=== PATIENT | male | born 1995 | race Caucasian/White ===

== ENCOUNTER 2017-09-04 10:23 | Outpatient (CLI) | payer OTHER ==
[2017-09-04 11:22] LABS: Hemoglobin 15.5 g/dL (14.0-18.0); Mean Corpuscular HGB CONC 32.9 g/dL (32.0-36.0); Mean Corpuscular Hemoglobin 30.3 pg (27.0-31.0); Mean Corpuscular Volume 92.1 fL (78.0-98.0); Mean Platelet Volume 7.8 fL (7.4-10.4); Platelet Count 179 thou/uL (130-400); RBC Distribution Width 11.6 % (11.5-14.5); Red Blood Cell (RBC) Count 5.11 mill/uL (4.70-6.10); White Blood Cell (WBC) Count 7.8 thou/uL (4.8-10.8)
[2017-09-04 11:26] LABS: PTT 31.5 SEC (22.9-36.1)
[2017-09-04 11:40] LABS: Anion Gap 14 mmol/L (10-20); BUN (Urea Nitrogen) 15 mg/dL (8.9-20.6); Calc. Creatinine Clearance 0 mL/min (70-130); Calcium 9.9 mg/dL (7.8-10.44); Carbon Dioxide 26 mmol/L (22-29); Chloride 104 mmol/L (98-107); Estimated GFR-MDRD Greater than 90; Glucose 86 mg/dL (70-105); INR-International Normal Ratio 1.1; Potassium 4.5 mmol/L (3.5-5.1); Prothrombin Time 14.1 SEC (12.0-14.7); Sodium 139 mmol/L (136-145)
== END 2017-09-04 10:24 | disposition home or self-care (01) ==
LOC: LABBT 10:23
PROVIDERS: ATTEND Dentist Oral and Maxillofacial Surgery
DX: Z01.818 Encounter for other preprocedural examination (principal); W55.81XA Bitten by other mammals, initial encounter
CPT/HCPCS: 80048; 85027; 85610; 85730; 93005; 93010

== ENCOUNTER 2017-09-16 05:41 | Observation (INO) | payer OTHER ==
[2017-09-16] MEDS ORDERED: Chlorhexidine Gluconate 15 ML UDCUP SSP ONE (06:32)
[2017-09-16] MEDS ORDERED: Lidocaine 1% w/Epinephrine 1:100K 30 ML VIAL ONE (06:32)
[2017-09-16] MEDS ORDERED: Oxymetazoline HCl 0.05% ( 15 ML ) ONE (06:41)
[2017-09-16] MEDS ORDERED: Clindamycin/D5W 900 mg/50 ml Premix Bag ONE (06:41)
[2017-09-16] MEDS ORDERED: Dexamethasone 4 mg/ml Vial ONE (06:41)
[2017-09-16] MEDS ORDERED: Fentanyl 250 MCG/5 ML VIAL ONE (06:47)
[2017-09-16] MEDS ORDERED: Midazolam HCl 2 mg/2 ml Vial ONE (06:51)
[2017-09-16] MEDS ORDERED: PROPOFOL 20 ML ONE (07:44)
[2017-09-16] MEDS ORDERED: Meperidine HCl/PF 25 MG/ML VIAL SLOW IVP PRN (11:10)
[2017-09-16] MEDS ORDERED: Promethazine HCl 25 MG/ML VIAL IM PRN (11:10)
[2017-09-16] MEDS ORDERED: Promethazine HCl 25 MG/ML VIAL SLOW IVP PRN (11:10)
[2017-09-16] MEDS ORDERED: Ondansetron HCl/PF 4 MG/2 ML Vial IVP PRN (11:10)
[2017-09-16] MEDS ORDERED: Promethazine HCl 25 MG/ML VIAL ONE (11:51)
[2017-09-16] MEDS ORDERED: Fentanyl 100 MCG/2 ML VIAL ONE ×2 (11:51→12:20)
[2017-09-16] MEDS ORDERED: PHENYLEPHRINE-NS 100 MCG/ML 10 ML SYRINGE ONE (12:50)
[2017-09-16] MEDS ORDERED: Lidocaine 1% PF 5 ML VIAL ONE (12:50)
[2017-09-16] MEDS ORDERED: Dexamethasone 20 MG/5 ML VIAL ONE (12:50)
[2017-09-16] MEDS ORDERED: Ondansetron HCl/PF 4 MG/2 ML Vial ONE (12:50)
[2017-09-16] MEDS ORDERED: PROPOFOL 200 MG/20 ML VIAL ONE (12:50)
[2017-09-16] MEDS ORDERED: HYDROcodone/Acetaminophen 7.5/325 mg Tablet PO PRN ×2 (13:33→20:49)
[2017-09-16] MEDS ORDERED: Clindamycin/D5W 900 MG in Premix Bag 1 BAG IVPB SCH (14:00)
--- NOTE | 2017-09-16 14:06 | OP ---
DATE OF PROCEDURE: 09/16/2017 SURGEON: Dr. Juan José Escobar PREOPERATIVE DIAGNOSES: 1. Apertognathia or anterior open bite. 2. 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 POSTOPERATIVE DIAGNOSES: 1. Apertognathia or anterior open bite. 2. 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 PROCEDURE PERFORMED: LeFort 1 maxillary osteotomy with anterior and posterior impaction with rigid i nternal fixation. COMPLICATIONS: None. DRAINS: None. SPECIMENS: None. ANESTHESIA: General endotracheal anesthesia. A regular tube was placed through the right naris, acu te angle connector was then adapted to the tube, A Resean adaptor was also used followed by a custom cushion to the forehead and wrap. Care was taken to make sure there was no pressure on the alar cart ilage of the nose HAND HIDE STRETCHER SURGEON: Dr. Rogelio Rosales ESTIMATED BLOOD LOSS: 200 mL. DISPOSITION: The patient was stable, extubated, and transferred to postop recovery unit. BRIEF PATIENT HISTORY AND PROCEDURE IN DETAIL: Mr. Rojas is a 21-year-old white male who came to me approximately 1 year ago with the complaint of unable to bring his front teeth together he was referr ed to Dr. Shaw for orthodontic evaluation and presurgical orthodontics prior to corrective jaw surger y. On preoperative workup, the patient was noted to have a fairly significant apertognathia as well as a vertical maxillary excess with excessive gingival display at rest. Preoperative plan was to mov e the posterior maxilla up approximately 4 mm. The anterior maxilla up approximately 1-2 mm and a fo rward advancement of the maxilla approximately 1-2 mm with auto rotation of the mandible and slight s hortening of a lower facial third. Prior to the surgery reference points were made from the right an d left canthus to the brackets of 8 and 9 and the canine bracket on the upper right and upper left. The patient was prepped and draped in sterile fashion with Betadine prep and paint. His oropharynx w as suctioned. Throat pack was placed. Infiltration of 1% lidocaine 1:10,000 epinephrine was done in the maxillary vestibule. After local anesthetic infiltration in the maxilla a circumvestibular inci tiffany was made from the mesial of the first molar on the right to the mesial of the first molar on the left in the maxilla. Full thickness mucoperiosteal flap was elevated in the maxillary piriform rim area, anterior nasal spine area as well as in the left and right maxillary zygomatic buttress areas. Full thickness mucoperiosteal flap was then elevated to the pterygomaxillary maxillary junction in t he maxillary tuberosity area bilaterally. Afrin soaked pledgets were placed on either side bilateral ly. Once exposure of the maxilla nasal floor dissection in the lateral nasal wall was done with a Fr eer elevator, removal of the anterior nasal spine with a rongeur was done, elevation of the nasal karlos or was carefully undertaken with care not to tear the mucosa. Once this was done, a reciprocating sa w was used to make an osteotomy from the lateral nasal wall to the maxillary tuberosity area bilatera lly, approximately 5 mm above the apices of the maxillary teeth. Once this was done, pterygoid osteo tomies was done utilizing anterior medially and inferior directed osteotome and care not to tear thro ugh the palatal mucosa. This was done bilaterally, followed bilateral nasal osteotomies and nasal se ptal osteotomies. The maxilla was then down fractured and mobilized. Rongeurs and bone bur were use d to remove bone posteriorly. Care was taken to preserve the descending palatine arteries bilaterall y. The nasal septum was reduced. The bony vomer was reduced posteriorly. A bone hook was used to g uide an inch and general anterior distraction of the maxilla and inferior distraction, the maxilla wa s then placed in the maxillomandibular fixation of the mandible using 26-gauge wire. Reference point s; the incisors and canines were then checked with autorotation of the mandible to check for any inte rferences in the maxilla. These interferences were relieved by using a football bur, correct measure ments were then taken to measure the 1-2 mm anterior move as well as the anterior impaction of 1-2 mm . Occlusion was then placed using a surgical splint and wiring. Maxillomandibular fixation was plac ed around the splint. The patient was placed passively into the maxilla and skull base contacts, 0.5 mm Synthes plates were then used to secure the maxilla at the piriform rim area and the lateral butt ress areas bilaterally. The patient was released from IMF. Occlusion checked was excellent and repe atable and passive with no distraction of the condyles. The area was thoroughly irrigated with ulices l saline bilaterally. Care was taken to make sure there was no bowing of the nasal septum. Some add itional reduction of the anterior nasal spine was done at this point, followed by alar cinch suture w ith 3-0 Vicryl followed by V-Y closure of the upper lip. Mucosal incision followed by interrupted 4- 0 chromic gut bilaterally. Once occlusion checked and repeated multiple times, the throat pack was r emoved. The patient was placed in a light elastics with rubber bands bilaterally. Nasal cavity irri gated with normal saline as well. I looked down posterior oropharynx at this time to make sure no ex cessive bleeding. The patient tolerated the procedure extremely well, was stable throughout the enti rety of the procedure. The patient will be transferred to postop recovery unit and placed in 24-hour observation.
[2017-09-16] MEDS: D5 0.9% NS w/ 20 mEq KCl 1,000 ML IV SCH (14:52)
[2017-09-16] MEDS: Chlorhexidine Gluconate 15 ML UDCUP SSP SCH ×2 (14:53→21:19)
[2017-09-16] MEDS: Sodium Chloride 0.65% Nasal 44 ML BOT EA NARE SCH ×10 (15:19→23:19)
[2017-09-16] MEDS: Oxymetazoline HCl 0.05% ( 15 ML ) NASAL PRN (16:42)
[2017-09-16] MEDS ORDERED: Ibuprofen 100 MG/5 ML UDCUP PO SCH (18:00)
[2017-09-16] MEDS: Ondansetron HCl/PF 4 MG/2 ML Vial IVP SCH (18:35)
[2017-09-16] MEDS: Dexamethasone 4 mg/ml Vial SLOW IVP SCH (18:35)
[2017-09-16] MEDS: HYDROcodone/Acetaminophen 7.5/325 mg Tablet PO PRN (21:19)
[2017-09-17] MEDS: Sodium Chloride 0.65% Nasal 44 ML BOT EA NARE SCH ×13 (00:10→11:40)
[2017-09-17] MEDS: Ibuprofen 100 MG/5 ML UDCUP PO SCH ×3 (00:58→11:41)
[2017-09-17] MEDS: Dexamethasone 4 mg/ml Vial SLOW IVP SCH ×3 (00:58→11:40)
[2017-09-17] MEDS: Ondansetron HCl/PF 4 MG/2 ML Vial IVP SCH ×3 (00:58→12:09)
[2017-09-17] MEDS: Clindamycin/D5W 900 MG in Premix Bag 1 BAG IVPB SCH ×2 (00:59→08:43)
[2017-09-17] MEDS: D5 0.9% NS w/ 20 mEq KCl 1,000 ML IV SCH (06:54)
[2017-09-17] MEDS: HYDROcodone/Acetaminophen 7.5/325 mg Tablet PO PRN (06:56)
[2017-09-17] MEDS: Chlorhexidine Gluconate 15 ML UDCUP SSP SCH ×2 (08:44→14:51)
[2017-09-17 11:22] VITALS: TEMP 97.1
[2017-09-17] MEDS: Oxymetazoline HCl 0.05% ( 15 ML ) NASAL PRN (12:11)
[2017-09-17 15:59] VITALS: BP 113/64
--- NOTE | 2017-09-17 17:18 | PRG ---
DATE OF SERVICE: 09/17/2017 SUBJECTIVE: The patient is postoperative day #1 status post LeFort 1 maxillary osteotomy impaction a nd superior and anterior repositioning along with internal fixation. The patient is doing well. He is voiding, ambulating, tolerating p.o. Currently, his pain is 2/10. He is no longer requiring IV p ain medications. He has avoided. He is ambulating. He did have some bouts of nausea overnight whic h have since gone away. OBJECTIVE: VITAL SIGNS: Temperature current is 97.1, pulse 91, respirations 16. He is satting 98% on room air, blood pressure 113/64. HEENT: His pupils are equal, round, and reactive to light and accommodation. His visual acuity is i ntact. His extraocular movements are intact. He does have bilateral V2 paresthesia expected from th e surgery. His maxillary gingiva is pink, well perfused. Good capillary refill. His braces are int act. He has guiding elastics. His occlusion is excellent and repeatable. His opening is good. He has some dried crusted blood in both nares, but no active bleeding. His nasal septum is straight. H e has moderate amount of postoperative swelling as to be expected. His wounds are clean, dry, and in tact. ASSESSMENT: The patient is doing well status post LeFort 1 osteotomy. PLAN: The patient is okay for discharge home today. I will send patient home on clindamycin 300 mg p.o. q.6 hours for 7 days. Peridex 15 mL swish and spit t.i.d. Afrin nasal spray 2 puffs each nostr il b.i.d. for 2 days. [place] nasal spray 2 puffs each nostril every hour while awake for the next wee k. [place] 7.5/325 one tab p.o. q.6 hours p.r.n. pain, 25 were dispensed. The patient is also to take ibuprofen q.6 hours for the next 24 hours. The patient's diet is full liquid diet. Follow up is at my office tomorrow at 12:30, the patient has an appointment. Also of note, no heavy lifting, no rou gh physical activity. The patient is not to drive while on pain medication and please also note, the patient did have dietitian consultation while in the hospital for full liquid diet. Nutritional nee ds for healing and will need an adequate source of protein.
== END 2017-09-17 16:27 | disposition home or self-care (01) ==
LOC: SDC 05:41 → SURG A 12:22
PROVIDERS: ADMIT Dentist Oral and Maxillofacial Surgery; ATTEND Dentist Oral and Maxillofacial Surgery
PROC: 0NSR04Z Reposition Maxilla with Internal Fixation Device, Open Approach (ICD-10-PCS; principal; 2017-09-16)
PROC: 0NUR07Z Supplement Maxilla with Autologous Tissue Substitute, Open Approach (ICD-10-PCS; 2017-09-16)
DX: M26.213 Malocclusion, Angle's class III (principal); Z79.899 Other long term (current) drug therapy
CPT/HCPCS: 96361; 96365; 96374; 96375; 96376; A4216; C1713; G0378; J0131; J1100; J2001; J2250; J2270; J2405; J2550; J2704; J3010; J3490

== ENCOUNTER 2018-02-09 20:24 | Emergency (ER) | payer BC, OTHER, SELFPAY ==
--- NOTE | 2018-02-09 22:54 | ULT ---
RIGHT LOWER EXTREMITY VENOUS DUPLEX ULTRASOUND INCLUDING COLOR AND SPECTRAL DOPPLER IMAGING: HISTORY: A 22-year-old male with a history of right hamstring pain and right thigh pain. TECHNIQUE: Exam performed to the right lower extremity, from the groin to the ankle, including the visualized gr eater saphenous, common femoral, superficial femoral, profunda femoral, popliteal, trifurcation, and posterior tibial vein regions. FINDINGS: There is phasic flow at all levels with normal compressibility and normal augmentation. No intralumi nal thrombus. IMPRESSION: No evidence for deep venous thrombosis. POS: [facility]
== END 2018-02-09 22:23 | disposition home or self-care (01) ==
LOC: SCSER 20:24
DX: M79.651 Pain in right thigh (principal); M79.601 Pain in right arm; F90.9 Attention-deficit hyperactivity disorder, unspecified type; Z79.899 Other long term (current) drug therapy
CPT/HCPCS: 93005